=== PATIENT | female | born 1945 | race Caucasian/White ===

== ENCOUNTER 2018-07-02 11:02 | Outpatient (CLI) | payer MEDICARE | END 2018-07-02 11:03 | disposition home or self-care (01) | LOC: BICMAMMO 11:02 | PROVIDERS: ATTEND Internal Medicine | DX: Z12.31 Encounter for screening mammogram for malignant neoplasm of breast (principal) | CPT/HCPCS: 77063; 77067 ==

== ENCOUNTER 2019-07-27 10:49 | Outpatient (CLI) | payer MEDICARE ==
--- NOTE | 2019-07-27 11:35 | MMO ---
Bilateral MAMMO Bilat Screen [facility]. CLINICAL HISTORY: Patient is 74 years old and is seen for screening. The patient has no family history of breast cancer. The patient has no personal history of cancer. The patient has a history of right Excisional Biopsy in 1969 - BENIGN. VIEWS: The views performed were: bilateral craniocaudal with tomosynthesis and bilateral mediolateral oblique with tomosynthesis. FILMS COMPARED: The present examination has been compared to prior imaging studies performed at [facility] on 06/14/2015, 06/24/2016, 06/25/2017 and 07/02/2018. MAMMOGRAM FINDINGS: There are scattered fibroglandular densities. There are no suspicious masses, suspicious calcifications, or new areas of architectural distortion. IMPRESSION: THERE IS NO MAMMOGRAPHIC EVIDENCE OF MALIGNANCY. A ROUTINE FOLLOW-UP MAMMOGRAM IN 1 YEAR IS RECOMMENDED. THE RESULTS OF THIS EXAM WERE SENT TO THE PATIENT. ACR BI-RADS Category 1 - Negative MAMMOGRAPHY NOTE: 1. A negative mammogram report should not delay a biopsy if a dominant of clinically suspicious mass is present. 2. Approximately 10% to 15% of breast cancers are not detected by mammography. 3. Adenosis and dense breasts may obscure an underlying neoplasm. Reported by: JERROD RODRÍGUEZ MD Electonically Signed: [id number]
== END 2019-07-27 10:50 | disposition home or self-care (01) ==
LOC: BICMAMMO 10:49
PROVIDERS: ATTEND Internal Medicine
DX: Z12.31 Encounter for screening mammogram for malignant neoplasm of breast (principal); Z91.89 Other specified personal risk factors, not elsewhere classified
CPT/HCPCS: 77063; 77067

== ENCOUNTER 2020-08-01 10:28 | Outpatient (CLI) | payer MEDICARE ==
--- NOTE | 2020-08-01 11:23 | BD ---
EXAM: Bone densitometry using DEXA HISTORY: 75 yo female. Screening for postmenopausal osteoporosis FINDINGS: Right hip: Right femoral neck--bone mineral density0.619; T score -2.1 ; Z score 0.0 Total proximal right femur--bone mineral density 0.768; T score -1.4 ; Z score 0.3 Left hip: Left femoral neck--bone mineral density0.563; T score -2.6 ; Z score -0.5 Total proximal left femur--bone mineral density 0.669; T score -2.2 ; Z score -0.5 IMPRESSION: Osteoporosis
--- NOTE | 2020-08-01 11:34 | MMO ---
Bilateral MAMMO Bilat Screen [facility]. CLINICAL HISTORY: Patient is 75 years old and is seen for screening. The patient has no family history of breast cancer. The patient has no personal history of cancer. The patient has a history of right Excisional Biopsy in 1969 - BENIGN. VIEWS: The views performed were: bilateral craniocaudal with tomosynthesis and bilateral mediolateral oblique with tomosynthesis. FILMS COMPARED: The present examination has been compared to prior imaging studies performed at [facility] on 06/24/2016, 06/25/2017, 07/02/2018 and 07/27/2019. This study has been interpreted with the assistance of computer-aided detection. MAMMOGRAM FINDINGS: There are scattered fibroglandular densities. There are no suspicious masses, suspicious calcifications, or new areas of architectural distortion. IMPRESSION: THERE IS NO MAMMOGRAPHIC EVIDENCE OF MALIGNANCY. A ROUTINE FOLLOW-UP MAMMOGRAM IN 1 YEAR IS RECOMMENDED. THE RESULTS OF THIS EXAM WERE SENT TO THE PATIENT. ACR BI-RADS Category 1 - Negative MAMMOGRAPHY NOTE: 1. A negative mammogram report should not delay a biopsy if a dominant of clinically suspicious mass is present. 2. Approximately 10% to 15% of breast cancers are not detected by mammography. 3. Adenosis and dense breasts may obscure an underlying neoplasm. Reported by: CLAUDIO GARCIA MD Electonically Signed: [id number]
== END 2020-08-01 10:29 | disposition home or self-care (01) ==
LOC: BICMAMMO 10:28
PROVIDERS: ATTEND Internal Medicine
DX: Z12.31 Encounter for screening mammogram for malignant neoplasm of breast (principal); M81.0 Age-related osteoporosis without current pathological fracture; Z91.89 Other specified personal risk factors, not elsewhere classified
CPT/HCPCS: 77063; 77067; 77080

== ENCOUNTER 2021-08-09 13:30 | Outpatient (CLI) | payer MEDICARE | END 2021-08-09 13:31 | disposition home or self-care (01) | LOC: BICMAMMO 13:30 | PROVIDERS: ATTEND Internal Medicine | DX: Z12.31 Encounter for screening mammogram for malignant neoplasm of breast (principal); Z91.89 Other specified personal risk factors, not elsewhere classified | CPT/HCPCS: 77063; 77067 ==

== ENCOUNTER 2021-09-20 13:49 | Outpatient (CLI) | payer MEDICARE | END 2021-09-20 13:50 | disposition home or self-care (01) | LOC: BICMRI 13:49 | PROVIDERS: ATTEND Anesthesiology Pain Medicine | DX: M47.816 Spondylosis without myelopathy or radiculopathy, lumbar region (principal); M48.062 Spinal stenosis, lumbar region with neurogenic claudication; M48.07 Spinal stenosis, lumbosacral region; M48.05 Spinal stenosis, thoracolumbar region | CPT/HCPCS: 72148 ==

== ENCOUNTER 2022-04-29 13:00 | Outpatient (CLI) | payer MEDICARE | END 2022-04-29 13:01 | disposition home or self-care (01) | LOC: MRI 13:00 | PROVIDERS: ATTEND Neurological Surgery | DX: R29.6 Repeated falls (principal); R26.89 Other abnormalities of gait and mobility; M47.812 Spondylosis without myelopathy or radiculopathy, cervical region | CPT/HCPCS: 70551; 72141 ==

== ENCOUNTER 2022-06-25 16:32 | Emergency (ER) | payer MEDICARE ==
[2022-06-25] MEDS ORDERED: Ketorolac Tromethamine 30 MG/ML VIAL ONE (18:09)
[2022-06-25] MEDS ORDERED: Ketamine 50 MG/ML (10ML VIAL) ONE ×2 (18:23→19:20)
== END 2022-06-25 20:54 | disposition home or self-care (01) ==
LOC: ERS 16:32
DX: S52.501A Unspecified fracture of the lower end of right radius, initial encounter for closed fracture (principal); S01.81XA Laceration without foreign body of other part of head, initial encounter; W19.XXXA Unspecified fall, initial encounter
CPT/HCPCS: 12011; 25605; 70450; 96374; J1885

== ENCOUNTER 2022-06-30 10:27 | Outpatient (CLI) | payer MEDICARE | END 2022-06-30 10:28 | disposition home or self-care (01) | LOC: LABBT 10:27 | PROVIDERS: ATTEND Orthopaedic Surgery | DX: Z20.822 Contact with and (suspected) exposure to COVID-19 (principal) | CPT/HCPCS: 87811 ==

== ENCOUNTER 2022-07-01 10:43 | Day surgery (SDC) | payer MEDICARE ==
[2022-06-30 11:43] VITALS: BMI 30.7
[2022-07-01] MEDS ORDERED: Midazolam HCl 2 mg/2 ml Vial ONE (12:00)
[2022-07-01] MEDS ORDERED: Fentanyl 100 MCG/2 ML VIAL ONE (12:00)
[2022-07-01] MEDS ORDERED: fentaNYL Citrate/PF 100 MCG/2 ML SYRINGE ONE (12:10)
[2022-07-01] MEDS ORDERED: CEFAZOLIN 2 GM VIAL ONE (12:36)
[2022-07-01] MEDS ORDERED: Sodium Chloride 0.9% 100 ML ONE (12:36)
[2022-07-01] MEDS ORDERED: Dexamethasone 20 MG/5 ML VIAL ONE (12:56)
[2022-07-01] MEDS ORDERED: Ondansetron PF 4 MG/2 ML Vial ONE (12:56)
[2022-07-01] MEDS ORDERED: PROPOFOL 200 MG/20 ML VIAL ONE (12:56)
[2022-07-01] MEDS ORDERED: Lidocaine 1% PF 5 ML VIAL ONE (12:56)
[2022-07-01] MEDS ORDERED: Bupivacaine HCl 0.5%/Epinephrine 1:200,000/PF 30 ml Vial ONE (12:56)
[2022-07-01] MEDS ORDERED: ePHEDrine 50 MG/ML VIAL ONE (12:56)
== END 2022-07-01 16:04 | disposition home or self-care (01) ==
LOC: SDC 10:43
PROVIDERS: ATTEND Orthopaedic Surgery
PROC: 0PSH04Z Reposition Right Radius with Internal Fixation Device, Open Approach (ICD-10-PCS; principal; 2022-07-01)
PROC: 3E0T3BZ Introduction of Anesthetic Agent into Peripheral Nerves and Plexi, Percutaneous Approach (ICD-10-PCS; 2022-07-01)
DX: S52.531A Colles' fracture of right radius, initial encounter for closed fracture (principal); S62.162A Displaced fracture of pisiform, left wrist, initial encounter for closed fracture; E78.5 Hyperlipidemia, unspecified; Z87.891 Personal history of nicotine dependence; Z79.810 Long term (current) use of selective estrogen receptor modulators (SERMs); Z79.82 Long term (current) use of aspirin; Z79.899 Other long term (current) drug therapy; Z88.6 Allergy status to analgesic agent; W19.XXXA Unspecified fall, initial encounter; Y93.K1 Activity, walking an animal
CPT/HCPCS: 25607; 64415; 73100; 76000; 93005; C1713 ×4; 93010; J0690; J1100; J2250; J2405; J2704; J3010; J3490

== ENCOUNTER 2023-05-23 20:39 | Inpatient (IN) | payer MEDICARE ==
[~2023-05-23 20:39] MED LIST: Iopamidol-370 76% 500 ML MDV (1 ML CHARGE) ONE
[2023-05-23 21:23] LABS: #Basophils 0.1 thou/uL (0.0-0.2); #Monocytes 0.8 thou/uL (0.11-0.59); #Neutrophils 13.9 thou/uL (1.40-6.50); %Basophils 0.6 % (0.0-1.0); %Eosinophils 0.1 % (0.0-10.0); %Lymphocytes 5.6 % (21.0-51.0); %Monocytes 5.1 % (0.0-10.0); Hematocrit 42.9 % (36.0-47.0); Hemoglobin 14.1 g/dL (12.0-16.0); Mean Corpuscular HGB CONC 32.9 g/dL (32.0-36.0); Mean Corpuscular Hemoglobin 31.3 pg (27.0-31.0); Mean Corpuscular Volume 95.3 fl (78.0-98.0); Mean Platelet Volume 10.9 fL (7.4-10.4); Platelet Count 290 10x3/uL (130-400); RBC Distribution Width 12.5 % (11.5-14.5); White Blood Cell (WBC) Count 15.8 10x3/uL (4.8-10.8)
[2023-05-23 22:11] LABS: Albumin 4.2 g/dL (3.4-4.8)
[2023-05-23 22:12] LABS: Chloride 98 mmol/L (98-107); Potassium 4.7 mmol/L (3.5-5.1); Sodium 135 mmol/L (136-145)
[2023-05-23 22:13] LABS: Calcium 9.6 mg/dL (7.8-10.44); Glucose 98 mg/dL (83-110)
[2023-05-23 22:14] LABS: Globulin 2.9 g/dL (2.4-3.5); Protein, Total 7.1 g/dL (5.8-8.1)
[2023-05-23 22:15] LABS: Anion Gap 18 mmol/L (10-20); Bilirubin, Total 0.5 mg/dL (0.2-1.2); Carbon Dioxide 24 mmol/L (23-31)
[2023-05-23 22:16] LABS: Alkaline Phosphatase 80 U/L (40-110)
[2023-05-23 22:17] LABS: Calc. Creatinine Clearance 0 mL/min (70-130); Estimated GFR 73
[2023-05-23 22:18] LABS: BUN (Urea Nitrogen) 18 mg/dL (9.8-20.1)
[2023-05-23 22:19] LABS: ALT (SGPT) 17 U/L (8-55); AST (SGOT) 23 U/L (5-34)
[2023-05-23 22:20] LABS: Lipase 26 U/L (8-78)
[2023-05-23 23:35] LABS: Bacteria/HPF 4+ HPF (None Seen); Bilirubin Negative (Negative); Blood, Urine 3+ (Negative); CAUTI Indications for Culture Dysuria,urgency,freq; Clarity Extra Turbid (Clear); Glucose, Urine (Dipstick) Normal (Negative); Ketone, Urine 40 mg/dL (Negative); Leukocyte 500 Leu/uL (Negative); Nitrite Negative (Negative); Protein, Urine (Dipstick) 100 mg/dL (Neg-Trace); RBC/HPF Greater than 50 HPF (0-3); Specific Gravity, Urine 1.023 (1.002-1.036); Squamous Epithelial 0-3 HPF (0-3); WBC/HPF 21-50 HPF (0-3); pH, Urine 6.5 (5.0-9.0)
[2023-05-23 23:37] LABS: Urine Culture Reflex Yes Yes
[2023-05-24] MEDS ORDERED: cefTRIAXone (ROCEPHIN) 1 GM VIAL ONE (00:29)
[2023-05-24] MEDS ORDERED: Fleet Saline Enema 133 ML BOT PR SCH (00:45)
[2023-05-24] MEDS ORDERED: Ondansetron PF 4 MG/2 ML Vial IVP PRN (00:54)
[2023-05-24] MEDS ORDERED: Ondansetron ODT 4 MG TAB PO PRN (00:54)
[2023-05-24] MEDS ORDERED: Acetaminophen 650 MG Suppository PR PRN (00:54)
[2023-05-24] MEDS ORDERED: Polyethylene Glycol 3350 17 GM Packet PO PRN (01:00)
[2023-05-24] MEDS ORDERED: cefTRIAXone\\ROCEPHIN 1 GM in Sodium Chloride 0.9% 100 ML IVPB SCH (01:30)
[2023-05-24] MEDS: Sodium Chloride 0.9% 1,000 ML IV SCH ×2 (01:55→12:38)
[2023-05-24 02:33] VITALS: BMI 12.8
[2023-05-24] MEDS: Acetaminophen 325 MG TAB PO PRN (05:11)
[2023-05-24 07:30] LABS: #Basophils 0.1 thou/uL (0.0-0.2); #Monocytes 1.3 thou/uL (0.11-0.59); #Neutrophils 10.8 thou/uL (1.40-6.50); %Basophils 0.4 % (0.0-1.0); %Eosinophils 0.1 % (0.0-10.0); %Monocytes 9.3 % (0.0-10.0); %Neutrophils 77.7 % (42.0-75.0); Hematocrit 35.6 % (36.0-47.0); Hemoglobin 11.9 g/dL (12.0-16.0); Mean Corpuscular HGB CONC 33.4 g/dL (32.0-36.0); Mean Corpuscular Hemoglobin 31.3 pg (27.0-31.0); Mean Corpuscular Volume 93.7 fl (78.0-98.0); Mean Platelet Volume 10.6 fL (7.4-10.4); Platelet Count 244 10x3/uL (130-400); RBC Distribution Width 12.6 % (11.5-14.5); White Blood Cell (WBC) Count 13.9 10x3/uL (4.8-10.8)
[2023-05-24 08:01] LABS: Anion Gap 13 mmol/L (10-20); BUN (Urea Nitrogen) 13 mg/dL (9.8-20.1); Calc. Creatinine Clearance 71 mL/min (70-130); Calcium 8.7 mg/dL (7.8-10.44); Carbon Dioxide 21 mmol/L (23-31); Chloride 105 mmol/L (98-107); Estimated GFR 75; Glucose 100 mg/dL (83-110); Potassium 4.1 mmol/L (3.5-5.1); Sodium 135 mmol/L (136-145)
[2023-05-24] MEDS ORDERED: Acetaminophen/Codeine 30-300mg Tablet PO PRN (12:07)
[2023-05-24] MEDS ORDERED: Senokot S 8.6-50 MG TAB PO PRN (12:28)
[2023-05-24] MEDS: cefTRIAXone\\ROCEPHIN 2 GM in Sodium Chloride 0.9% 100 ML IVPB SCH (21:22)
[2023-05-24] MEDS: Polyethylene Glycol 3350 17 GM Packet PO SCH (21:22)
[2023-05-25] MEDS: Melatonin 3 MG TAB PO PRN ×2 (01:56→21:59)
[2023-05-25 06:59] LABS: #Basophils 0.1 thou/uL (0.0-0.2); #Eosinphils 0.1 thou/uL (0.0-0.7); #Monocytes 1.3 thou/uL (0.11-0.59); #Neutrophils 8.2 thou/uL (1.40-6.50); %Basophils 0.4 % (0.0-1.0); %Eosinophils 0.8 % (0.0-10.0); %Lymphocytes 16.6 % (21.0-51.0); %Monocytes 11.2 % (0.0-10.0); %Neutrophils 70.7 % (42.0-75.0); Hematocrit 34.2 % (36.0-47.0); Hemoglobin 11.5 g/dL (12.0-16.0); Mean Corpuscular HGB CONC 33.6 g/dL (32.0-36.0); Mean Corpuscular Hemoglobin 31.9 pg (27.0-31.0); Mean Corpuscular Volume 94.7 fl (78.0-98.0); Mean Platelet Volume 10.6 fL (7.4-10.4); Platelet Count 213 10x3/uL (130-400); RBC Distribution Width 12.7 % (11.5-14.5); Red Blood Cell (RBC) Count 3.61 mill/uL (4.20-5.40); White Blood Cell (WBC) Count 11.7 10x3/uL (4.8-10.8)
[2023-05-25 07:20] LABS: Anion Gap 13 mmol/L (10-20); BUN (Urea Nitrogen) 13 mg/dL (9.8-20.1); Calc. Creatinine Clearance 75 mL/min (70-130); Calcium 8.5 mg/dL (7.8-10.44); Carbon Dioxide 23 mmol/L (23-31); Chloride 105 mmol/L (98-107); Estimated GFR 81; Glucose 100 mg/dL (83-110); Potassium 3.7 mmol/L (3.5-5.1); Sodium 137 mmol/L (136-145)
[2023-05-25] MEDS: FLUoxetine HCl 20 MG CAP PO SCH (09:19)
[2023-05-25] MEDS: Bupropion 150 MG XL TAB PO SCH (09:19)
[2023-05-25] MEDS: Raloxifene 60 MG TAB PO SCH (09:20)
[2023-05-25] MEDS: Rosuvastatin 5 MG TAB PO SCH (09:20)
[2023-05-25] MEDS: Polyethylene Glycol 3350 17 GM Packet PO SCH ×2 (09:20→20:59)
[2023-05-25] MEDS ORDERED: Acetaminophen/Codeine 30-300mg Tablet PO PRN (10:12)
[2023-05-25] MEDS ORDERED: Fleet Saline Enema 133 ML BOT PR SCH (11:00)
[2023-05-25] MEDS: cefTRIAXone\\ROCEPHIN 2 GM in Sodium Chloride 0.9% 100 ML IVPB SCH (20:55)
[2023-05-26 06:19] LABS: #Basophils 0.1 thou/uL (0.0-0.2); #Eosinphils 0.3 thou/uL (0.0-0.7); #Monocytes 1.1 thou/uL (0.11-0.59); #Neutrophils 5.8 thou/uL (1.40-6.50); %Basophils 0.8 % (0.0-1.0); %Eosinophils 3.4 % (0.0-10.0); %Lymphocytes 22.6 % (21.0-51.0); %Monocytes 11.4 % (0.0-10.0); %Neutrophils 61.4 % (42.0-75.0); Hemoglobin 11.3 g/dL (12.0-16.0); Mean Corpuscular HGB CONC 33.2 g/dL (32.0-36.0); Mean Corpuscular Hemoglobin 31.2 pg (27.0-31.0); Mean Corpuscular Volume 93.9 fl (78.0-98.0); Mean Platelet Volume 10.7 fL (7.4-10.4); Platelet Count 200 10x3/uL (130-400); RBC Distribution Width 12.8 % (11.5-14.5); Red Blood Cell (RBC) Count 3.62 mill/uL (4.20-5.40); White Blood Cell (WBC) Count 9.4 10x3/uL (4.8-10.8)
[2023-05-26 06:52] LABS: Anion Gap 11 mmol/L (10-20); BUN (Urea Nitrogen) 13 mg/dL (9.8-20.1); Calc. Creatinine Clearance 74 mL/min (70-130); Calcium 8.3 mg/dL (7.8-10.44); Carbon Dioxide 25 mmol/L (23-31); Chloride 105 mmol/L (98-107); Estimated GFR 79; Glucose 89 mg/dL (83-110); Potassium 3.6 mmol/L (3.5-5.1); Sodium 137 mmol/L (136-145)
[2023-05-26] MEDS: FLUoxetine HCl 20 MG CAP PO SCH (08:52)
[2023-05-26] MEDS: Raloxifene 60 MG TAB PO SCH (08:53)
[2023-05-26] MEDS: Polyethylene Glycol 3350 17 GM Packet PO SCH ×2 (08:53→21:54)
[2023-05-26] MEDS: Rosuvastatin 5 MG TAB PO SCH (08:53)
[2023-05-26] MEDS: Bupropion 150 MG XL TAB PO SCH (08:54)
[2023-05-26] MEDS: Cephalexin 250 MG CAP PO SCH (17:44)
[2023-05-26] MEDS: Melatonin 3 MG TAB PO PRN (21:52)
[2023-05-27] MEDS: Cephalexin 250 MG CAP PO SCH ×4 (00:29→17:00)
[2023-05-27] MEDS: clonazePAM 1 MG TAB PO PRN ×2 (01:08→13:40)
[2023-05-27] MEDS: Rosuvastatin 5 MG TAB PO SCH (08:31)
[2023-05-27] MEDS: FLUoxetine HCl 20 MG CAP PO SCH (08:31)
[2023-05-27] MEDS: Raloxifene 60 MG TAB PO SCH (08:31)
[2023-05-27] MEDS: Polyethylene Glycol 3350 17 GM Packet PO SCH ×2 (08:31→20:27)
[2023-05-27] MEDS: Bupropion 150 MG XL TAB PO SCH (08:33)
[2023-05-27] MEDS: Melatonin 3 MG TAB PO PRN (20:26)
[2023-05-28] MEDS: clonazePAM 1 MG TAB PO PRN ×2 (00:40→23:09)
[2023-05-28] MEDS: Cephalexin 250 MG CAP PO SCH ×5 (00:40→23:09)
[2023-05-28] MEDS: FLUoxetine HCl 20 MG CAP PO SCH (08:57)
[2023-05-28] MEDS: Bupropion 150 MG XL TAB PO SCH (08:57)
[2023-05-28] MEDS: Polyethylene Glycol 3350 17 GM Packet PO SCH ×2 (08:57→20:07)
[2023-05-28] MEDS: Raloxifene 60 MG TAB PO SCH (08:57)
[2023-05-28] MEDS: Rosuvastatin 5 MG TAB PO SCH (08:57)
[2023-05-28] MEDS: Acetaminophen 325 MG TAB PO PRN (20:09)
[2023-05-28] MEDS: Melatonin 3 MG TAB PO PRN (20:09)
[2023-05-29] MEDS: Cephalexin 250 MG CAP PO SCH ×2 (05:28→12:43)
[2023-05-29] MEDS: FLUoxetine HCl 20 MG CAP PO SCH (09:17)
[2023-05-29] MEDS: Bupropion 150 MG XL TAB PO SCH (09:17)
[2023-05-29] MEDS: Polyethylene Glycol 3350 17 GM Packet PO SCH (09:18)
[2023-05-29] MEDS: Rosuvastatin 5 MG TAB PO SCH (09:19)
[2023-05-29] MEDS: Raloxifene 60 MG TAB PO SCH (09:19)
[2023-05-29] MEDS: clonazePAM 1 MG TAB PO PRN (09:24)
[2023-05-29 15:57] VITALS: BP 130/78; TEMP 97.7
== END 2023-05-29 16:41 | disposition swing bed (61) | DRG 871 ==
LOC: ERS 20:39 → T4-A 05-24 00:17 → OBSVTOIN 05-24 06:52
PROVIDERS: ADMIT Student in an Organized Health Care Education/Training Program; ATTEND Internal Medicine
PROC: 3E03329 Introduction of Other Anti-infective into Peripheral Vein, Percutaneous Approach (ICD-10-PCS; principal; 2023-05-24)
PROC: 009U3ZX Drainage of Spinal Canal, Percutaneous Approach, Diagnostic (ICD-10-PCS; 2023-05-28)
PROC: B01B1ZZ Fluoroscopy of Spinal Cord using Low Osmolar Contrast (ICD-10-PCS; 2023-05-28)
DX: A41.9 Sepsis, unspecified organism (principal); G93.41 Metabolic encephalopathy; N39.0 Urinary tract infection, site not specified; E87.1 Hypo-osmolality and hyponatremia; G89.29 Other chronic pain; M54.50 Low back pain, unspecified; R31.9 Hematuria, unspecified; R32 Unspecified urinary incontinence; K59.00 Constipation, unspecified; E78.5 Hyperlipidemia, unspecified; F41.9 Anxiety disorder, unspecified; F32.A Depression, unspecified; K52.9 Noninfective gastroenteritis and colitis, unspecified; M81.0 Age-related osteoporosis without current pathological fracture; M48.00 Spinal stenosis, site unspecified; Z88.8 Allergy status to other drugs, medicaments and biological substances; Z79.82 Long term (current) use of aspirin; Z79.899 Other long term (current) drug therapy
CPT/HCPCS: 36415; 62270; 70450; 71045; 72146; 72148; 74177; 80048; 80053; 81001; 83605; 83690; 84484; 85025; 87040; 87086; 93005; 96361; 96365; 96376; G0378; J0696; J1650; J3490; J7050; Q9967

== ENCOUNTER 2023-07-28 16:27 | Emergency (ER) | payer MEDICARE ==
[2023-07-28 17:31] LABS: #Basophils 0.1 thou/uL (0.0-0.2); #Eosinphils 0.1 thou/uL (0.0-0.7); #Monocytes 0.9 thou/uL (0.11-0.59); #Neutrophils 8.8 thou/uL (1.40-6.50); %Basophils 0.7 % (0.0-1.0); %Eosinophils 0.6 % (0.0-10.0); %Lymphocytes 11.5 % (21.0-51.0); %Monocytes 7.9 % (0.0-10.0); %Neutrophils 78.8 % (42.0-75.0); Hematocrit 41.9 % (36.0-47.0); Hemoglobin 13.8 g/dL (12.0-16.0); Mean Corpuscular HGB CONC 32.9 g/dL (32.0-36.0); Mean Corpuscular Hemoglobin 31.7 pg (27.0-31.0); Mean Corpuscular Volume 96.3 fl (78.0-98.0); Mean Platelet Volume 10.7 fL (7.4-10.4); Platelet Count 268 10x3/uL (130-400); RBC Distribution Width 13.2 % (11.5-14.5); Red Blood Cell (RBC) Count 4.35 mill/uL (4.20-5.40); White Blood Cell (WBC) Count 11.1 10x3/uL (4.8-10.8)
[2023-07-28 18:03] LABS: ALT (SGPT) 15 U/L (8-55); AST (SGOT) 18 U/L (5-34); Albumin 3.9 g/dL (3.4-4.8); Alkaline Phosphatase 72 U/L (40-110); Anion Gap 15 mmol/L (10-20); BUN (Urea Nitrogen) 14 mg/dL (9.8-20.1); Bilirubin, Total 0.4 mg/dL (0.2-1.2); Calc. Creatinine Clearance 0 mL/min (70-130); Calcium 9.4 mg/dL (7.8-10.44); Carbon Dioxide 24 mmol/L (23-31); Chloride 104 mmol/L (98-107); Estimated GFR 71; Glucose 87 mg/dL (83-110); Protein, Total 6.9 g/dL (5.8-8.1); Sodium 139 mmol/L (136-145)
[2023-07-28 18:51] LABS: Bacteria/HPF None Seen HPF (None Seen); Bilirubin Negative (Negative); Blood, Urine Negative (Negative); CAUTI Indications for Culture Dysuria,urgency,freq; Clarity Clear (Clear); Glucose, Urine (Dipstick) Normal (Negative); Ketone, Urine 10 mg/dL (Negative); Leukocyte Negative Leu/uL (Negative); Nitrite Negative (Negative); Protein, Urine (Dipstick) Negative (Neg-Trace); RBC/HPF 0-3 HPF (0-3); Specific Gravity, Urine 1.014 (1.002-1.036); Squamous Epithelial None Seen HPF (0-3); Urobilinogen Normal mg/dL (Less than 2); WBC/HPF 0-3 HPF (0-3)
[2023-07-28 18:55] LABS: Urine Culture Reflex No No
== END 2023-07-28 19:46 | disposition home or self-care (01) ==
LOC: ERS 16:27
DX: K56.41 Fecal impaction (principal); N76.0 Acute vaginitis; E78.5 Hyperlipidemia, unspecified; Z79.82 Long term (current) use of aspirin; Z79.899 Other long term (current) drug therapy
CPT/HCPCS: 36415; 51701; 80053; 81001; 85025; 93005

== ENCOUNTER 2023-10-30 14:58 | Outpatient (CLI) | payer MEDICARE | END 2023-10-30 14:59 | disposition home or self-care (01) | LOC: ULT 14:58 | PROVIDERS: ATTEND Family Medicine | DX: R22.43 Localized swelling, mass and lump, lower limb, bilateral (principal) | CPT/HCPCS: 93923 ==

== ENCOUNTER 2025-11-17 20:30 | Emergency (ER) | payer MEDICARE, OTHER ==
[2025-11-17 21:01] LABS: #Basophils 0.03 10x3/uL (0.0-0.2); #Eosinophils Less than 0.03 10x3/uL (0.0-0.7); #Monocytes 1.02 10x3/uL (0.11-0.59); #Neutrophils 10.32 10x3/uL (1.40-6.50); %Basophils 0.2 % (0.0-1.0); %Eosinophils 0.0 % (0.0-10.0); %Lymphocytes 11.2 % (21.0-51.0); %Monocytes 7.9 % (0.0-10.0); %Neutrophils 79.8 % (42.0-75.0); Hematocrit 39.7 % (36.0-47.0); Hemoglobin 13.2 g/dL (12.0-16.0); Mean Corpuscular Hemoglobin 29.9 pg (27.0-31.0); Mean Corpuscular Volume 89.8 fL (78.0-98.0); Platelet Count 217 10x3/uL (130-400); Red Blood Cell (RBC) Count 4.42 mill/uL (4.20-5.40); White Blood Cell (WBC) Count 12.93 10x3/uL (4.8-10.8)
[2025-11-17 21:13] LABS: ALT (SGPT) 20 U/L (Less than 34); AST (SGOT) 25 U/L (11-34); Albumin 3.2 g/dL (3.1-4.5); Alkaline Phosphatase 64 U/L (40-110); Anion Gap 20 mmol/L (10-20); BUN (Urea Nitrogen) 8 mg/dL (9.8-20.1); Bilirubin, Total 0.5 mg/dL (0.3-1.2); Calc. Creatinine Clearance 0 mL/min (70-130); Calcium 8.3 mg/dL (7.8-10.44); Carbon Dioxide 21 mmol/L (23-31); Chloride 103 mmol/L (98-107); Globulin 3.1 g/dL (2.4-3.5); Glucose 107 mg/dL (83-110); Potassium 3.7 mmol/L (3.5-5.1); Sodium 140 mmol/L (136-145)
[2025-11-17] MEDS ORDERED: cefTRIAXone (ROCEPHIN) 1 GM VIAL ONE (21:46)
[2025-11-17] MEDS ORDERED: Acetaminophen 500 MG TAB ONE (21:54)
== END 2025-11-17 22:17 | disposition home or self-care (01) ==
LOC: ERS 20:30
DX: J18.9 Pneumonia, unspecified organism (principal)
CPT/HCPCS: 71045; 80053; 83605; 83880; 84484; 85025; 87040; 87428; 93005; J0696; 96365